=== PATIENT | female | born 1930 | race Two or more races ===

== ENCOUNTER 2018-08-30 10:51 | Emergency (ER) | payer OTHER ==
[~2018-08-30] VITALS: Ht 157.5 cm; Wt 68.0 kg
[~2018-08-30 10:51] MED LIST: AMLODIPINE BES2.5 MG; ATORVASTATIN CA10 MG; CEFADROXIL500 MG PO; DONEPEZIL HCL10 MG; FENOFIBRATE145 MG; FOLIC ACID1 MG; KEPPRA750 MG; LOPRESSOR25 MG; LOSARTAN POTASS25 MG; METROPOLOL; NAMENDA10 MG; PNEU16DI2; VITAMIN D2000 UNI1
[2018-08-30] MEDS ORDERED: TOPROL XL25 M1 PO (10:55)
[2018-08-30] MEDS ORDERED: ARICEPT10 MG PO (10:55)
[2018-08-30] MEDS ORDERED: KEPPRA1000 MG PO (14:21)
== END 2018-08-30 21:27 | disposition home or self-care (01) ==
LOC: ER 10:51
DX: G40.89 Other seizures (principal); I10 Essential (primary) hypertension